=== PATIENT | male | born 1950 | race Caucasian/White ===

== ENCOUNTER 2025-01-17 07:14 | Day surgery (SDC) | payer MEDICARE, SELFPAY ==
--- NOTE | 2025-01-09 11:06 | EKG12_ITS ---
Test Reason : PRE OP Blood Pressure : */* mmHG Vent. Rate : 91 BPM Atrial Rate : 91 BPM P-R Int : 140 ms QRS Dur : 124 ms QT Int : 378 ms P-R-T Axes : 43 -54 38 degrees QTcB Int : 464 ms Normal sinus rhythm Right bundle branch block Left anterior fascicular block Bifascicular block Possible Lateral infarct , age undetermined Abnormal ECG Confirmed by Sd Duarte ([id number]), industrial editor NEERAJ BOLAÑOS ([id number]) on 01/10/2025 6:55:47 AM Referred By: Chris Espitia Confirmed By: Sd Duarte
[2025-01-09 12:41] LABS: Hematocrit 44.6 % (40-54); Hemoglobin 14.8 g/dL (13.0-16.5); Mean Corp Hgb Conc 33.2 g/dL (32-36); Mean Corpuscular Volume 93.3 fL (80-94); Mean Platelet Vol. 12.9 fl (6.2-12.0); Platelet Count 166 K/mm3 (150-450); RBC Distribution Width CV 13.2 % (11.6-14.6); RBC Distribution Width SD 45.7 fl (35.1-43.9); Red Blood Count 4.78 M/mm3 (4.6-6.2); White Blood Count 5.8 K/mm3 (4.4-11.0)
[2025-01-09 12:44] LABS: International Normalized Ratio 0.9; Prothrombin Time (Protime)PT. 12.4 SECONDS (11.7-14.9)
[2025-01-09 13:23] LABS: Partial Thromboplast Time 24.5 Seconds (24.1-36.2)
[2025-01-09 13:56] LABS: AST(SGOT) 24 U/L (15-37); Alanine Aminotransfer ALT/SGPT 37 U/L (16-61); Albumin, Serum 4.1 g/dL (3.2-5.0); Alkaline Phosphatase 76 U/L (45-117); Anion Gap 6 (5-15); BUN 9 mg/dL (7-18); BUN/Creat Ratio 9.2 RATIO (10-20); Bilirubin, Direct 0.21 mg/dL (0.00-0.30); Calcium,Total 9.4 mg/dL (8.5-10.1); Chloride 104 mmol/L (98-107); Creatinine, Serum 0.97 mg/dL (0.70-1.30); EST Glomerular Filtration Rate 80 mL/min (>60); Est Glom Filt Rate - Afr Amer 97 mL/min (>60); Globulin 3.5 g/dL (2.2-4.2); Glucose 97 mg/dL (74-106); Protein, Total 7.6 g/dL (6.4-8.2); Sodium Level 137 mmol/L (136-145)
--- NOTE | 2025-01-10 10:02 | PAT.ANESEVAL ---
Pre-Assessment Diagnosis/Proposed Procedure Planned Operative Procedure(s): TURBT MEDIUM WITH MITOMYCIN C Anesthesia History Anesthesia History - mat inspector: Anesthesia History - mat inspector Hx Hospitalization No 01/04/25 09:12 Any Problems With Anesthesia No 01/04/25 09:12 Cholinesterase deficiency No 01/04/25 09:12 You/Your Family Experience No 01/04/25 09:12 fever (hyperthermia) with Relationship Recent Exposure to Contagious Disease Does patient have nerve No 01/04/25 09:12 stimulator Patient instructed to have device shut off --Does patient have Pacemaker or ICD? When Was Last Pacemaker Check QUESTION #4 FULL TEXT: You/Your Family Experience fever (hyperthermia) with Anesthesia Last Oral Intake Last Oral intake: Last Oral Intake NPO since Meds taken in AM with sips of water? Meds patient instructed to take am of surgery PONV PONV - mat inspector: PONV - mat inspector Female No 01/04/25 09:12 HX of Motion Sickness No 01/04/25 09:12 HX of N/V After Surgery No 01/04/25 09:12 Non-Smoker Yes 01/04/25 09:12 Duration of Surgery greater Yes 01/04/25 09:12 than 60 minutes Number of Risk Factors 2 01/04/25 09:12 PONV Score Moderate Risk 01/04/25 09:12 Respiratory Assessment Respiratory Assessment - mat inspector: Respiratory Tract Infection Hx - mat inspector Hx Respiratory Tract Infection No 01/04/25 09:12 STOP Sleep Apnea STOP Sleep Apnea - mat inspector: STOP Sleep Apnea - mat inspector Hx Hypertension Yes: CONTROLLED WITH MEDS 01/04/25 09:12 Hx Sleep Apnea No 01/04/25 09:12 CPAP BIPAP Do you snore loudly (louder No 01/04/25 09:12 than talking or can be heard Do you often feel tired/ No 01/04/25 09:12 fatigued/ sleepy during daytime? Has anyone observed you stop No 01/04/25 09:12 breathing during sleep? STOP Results Negative 01/04/25 09:12 QUESTION #5 FULL TEXT : Do you snore loudly (louder than talking or can be heard through closed doors)? Tobacco Use History Tobacco Use History - mat inspector: Tobacco Use History - mat inspector Tobacco Use Smoking Status Former smoker 01/04/25 09:12 Hx Tobacco Use No 01/04/25 09:12 Years Smoking Packs Smoked per Day Smoking Cessation Date was No - quit smoking greater 01/04/25 09:12 within the last 15 years than 15 years ago Hx Smoking Cessation Date Hx Smoking Cessation No 01/04/25 09:12 Counseling Hematologic Medial History Hematologic Hx - mat inspector: Hematologic Medical Hx - outer diameter grinder Hx of Blood Transfusion No 01/04/25 09:12 Hx of Transfusion in last 3 No 01/04/25 09:12 Months Date of Last Transfusion (if within last 3 months) Ever experience any problems No 01/04/25 09:12 with transfusion(s)? Specify any problems Hx of Preganancy in last 3 N/A 01/04/25 09:12 Months Nurse Filling Out Transfusion DSCHRIBER 01/04/25 09:12 & Questions: Date: 01/04/25 01/04/25 09:12 Time: 09:15 01/04/25 09:12 Patient unable to answer at this time (ie. confused, unrespo /Reproduction History /Reproductive History - mat inspector: /Reproductive Hx- mat inspector Hx Now No 01/04/25 09:12 Gestational Age (in weeks): EDC: Hx Hx Para Hx Section SAB No 01/04/25 09:12 [facility] Medical History (Updated 01/04/25 @ 09:22 by Italia Torres) Loss of hearing Wears glasses Wears partial dentures Cancer Alcohol use Arthritis Prostate disease Bladder disease Loss of consciousness Injury of head and neck Former smoker Hypertension Home Medications ?Medication ?Instructions ?Recorded ?Last Taken ?Type amlodipine 5 mg tablet 5 mg PO QHS 01/04/25 Unknown History lisinopril 10 1 tab PO DAILY 01/04/25 Unknown History mg-hydrochlorothiazide 12.5 mg tablet quetiapine 200 mg tablet 200 mg PO QHS 01/04/25 Unknown History Allergy/AdvReac Type Severity Reaction Status Date / Time No Known Allergies Allergy Verified 01/04/25 09:08 Surgical History (Updated 01/04/25 @ 09:22 by Italia Torres) Hx of colonoscopy Hx of radical prostatectomy Hx of appendectomy Social History Smoking Status: Former smoker Audit: Pertinent Findings Pertinent Findings EKG Perinent findings: 01/09/2025 normal sinus rhythm right bundle branch block left anterior fascicular block bifascicular block possible lateral infarct age undetermined no old EKG to compare Recommendation Anesthesia Recommendation Anesthesia recommendation: OPTIMIZED for anesthesia
[2025-01-17] VITALS (10 sets, daily range): BP systolic 106–143; BP diastolic 56–88; PULSE 77–89; RESP 16–18; TEMP 36.4–36.8; O2SAT 95–98; BMI 32.3
[2025-01-17] MEDS: 0.9% Normal Saline (1000mL) 1,000 ML 15 ML IV (07:45)
--- NOTE | 2025-01-17 08:44 | PRE.ANES_ITS ---
ASA Classification* ASA Classification ASA Classification: 2 Assessment & Plan Anesthesia* Anesthesia Assessment Anesthesia Assessment: Discussed sedation and/or anesthesia options, risks, benefits, and alternatives with patient/parents/legal guardian/POA. Questions invited. The patient/parents/legal guardian/POA seems to understand and agrees to proceed with anesthesia plan. Reviewed the physical assessment, medical history, allergy history and patient home medications list prior to surgery/procedure/anesthetic and documented any changes. Performed airway and anesthesia risk assessments. Anesthesia Type Anesthesia Type: General History Source History Obtained from:: Patient and Chart Anesthesia Focused Assessment* Temperature: 98.2 F Pulse Rate: 88 Blood Pressure: 141/76 Respiratory Rate: 16 Pulse Ox: 98 Oxygen Delivery Method: Room Air Airway Assessment Mouth opens: >3 cm Mallampati Score: III Teeth Condition: Caps/Crowns (Some caps and crowns. They are all tight.), Missing (Some missing teeth.) and Partial (Patient has lower partial. It is out.) Neck Range of motion (ROM): Full ROM Focused Labs Anesthesia Preop lab: CBC WBC 5.8 K/mm3 (4.4-11.0) 01/09/25 11:01/09/25 RBC 4.78 M/mm3 (4.6-6.2) 01/09/25:01/09/25 Hgb 14.8 g/dL (13.0-16.5) 01/09/25 11:01/09/25 Hct 44.6 % (40-54) 01/09/25 11:01/09/25 Plt Count 166 K/mm3 (150-450) 01/09/25 11:01/09/25 CHEMISTRY Potassium 4.0 mmol/L (3.5-5.1) 01/09/25:01/09/25 Sodium 137 mmol/L (136-145) 01/09/25:01/09/25 BUN 9 mg/dL (7-18) 01/09/25:01/09/25 Creatinine 0.97 mg/dL (0.70-1.30) 01/09/25 11:01/09/25 Glucose 97 mg/dL (74-106) 01/09/25 11:01/09/25 COAG PT 12.4 SECONDS (11.7-14.9) 01/09/25 11:28 Pre-Assessment Diagnosis/Proposed Procedure Planned Operative Procedure(s): TURBT MEDIUM WITH MITOMYCIN C Anesthesia History Anesthesia History - contractor general engineering: Anesthesia History - contractor general engineering Hx Hospitalization No 01/04/25 09:12 Any Problems With Anesthesia No 01/04/25 09:12 Cholinesterase deficiency No 01/04/25 09:12 You/Your Family Experience No 01/04/25 09:12 fever (hyperthermia) with Relationship Recent Exposure to Contagious No 01/17/25 07:53 Disease Does patient have nerve No 01/04/25 09:12 stimulator Patient instructed to have device shut off --Does patient have Pacemaker No 01/17/25 07:53 or ICD? When Was Last Pacemaker Check QUESTION #4 FULL TEXT: You/Your Family Experience fever (hyperthermia) with Anesthesia Last Oral Intake Last Oral intake: Last Oral Intake NPO since 06:00 01/17/25 07:53 Meds taken in AM with sips of No 01/17/25 07:53 water? Meds patient instructed to take am of surgery Any additional information?: Yes NPO since: 05:45 (Patient had black coffee at 5:45 AM) PONV PONV - contractor general engineering: PONV - contractor general engineering Female No 01/04/25 09:12 HX of Motion Sickness No 01/04/25 09:12 HX of N/V After Surgery No 01/04/25 09:12 Non-Smoker Yes 01/04/25 09:12 Duration of Surgery greater Yes 01/04/25 09:12 than 60 minutes Number of Risk Factors 2 01/04/25 09:12 PONV Score Moderate Risk 01/04/25 09:12 Height & Weight Height & Weight: Anesthesia: Height & Weight Height 6 ft 01/17/25 07:53 Weight: 108 kg 01/17/25 07:53 Body Mass Index (BMI) 32.3 01/17/25 07:53 Respiratory Assessment Respiratory Assessment - contractor general engineering: Respiratory Tract Infection Hx - contractor general engineering Hx Respiratory Tract Infection No 01/04/25 09:12 STOP Sleep Apnea STOP Sleep Apnea - contractor general engineering: STOP Sleep Apnea - contractor general engineering Hx Hypertension Yes: CONTROLLED WITH MEDS 01/04/25 09:12 Hx Sleep Apnea No 01/04/25 09:12 CPAP BIPAP Do you snore loudly (louder No 01/04/25 09:12 than talking or can be heard Do you often feel tired/ No 01/04/25 09:12 fatigued/ sleepy during daytime? Has anyone observed you stop No 01/04/25 09:12 breathing during sleep? STOP Results Negative 01/04/25 09:12 QUESTION #5 FULL TEXT : Do you snore loudly (louder than talking or can be heard through closed doors)? Tobacco Use History Tobacco Use History - contractor general engineering: Tobacco Use History - contractor general engineering Tobacco Use Smoking Status Former smoker 01/04/25 09:12 Hx Tobacco Use No 01/04/25 09:12 Years Smoking Packs Smoked per Day Smoking Cessation Date was No - quit smoking greater 01/04/25 09:12 within the last 15 years than 15 years ago Hx Smoking Cessation Date Hx Smoking Cessation No 01/04/25 09:12 Counseling Hematologic Medial History Hematologic Hx - contractor general engineering: Hematologic Medical Hx - head rose grower Hx of Blood Transfusion No 01/04/25 09:12 Hx of Transfusion in last 3 No 01/04/25 09:12 Months Date of Last Transfusion (if within last 3 months) Ever experience any problems No 01/04/25 09:12 with transfusion(s)? Specify any problems Hx of Preganancy in last 3 N/A 01/04/25 09:12 Months Nurse Filling Out Transfusion DSCHRIBER 01/04/25 09:12 & Questions: Date: 01/04/25 01/04/25 09:12 Time: 09:15 01/04/25 09:12 Patient unable to answer at this time (ie. confused, unrespo /Reproduction History /Reproductive History - contractor general engineering: /Reproductive Hx- contractor general engineering Hx Now No 01/04/25 09:12 Gestational Age (in weeks): EDC: Hx Hx Para Hx Section SAB No 01/04/25 09:12 Active Medications Active Medications: Current Medications Generic Name Dose Route Start Last Admin Trade Name Freq PRN Reason Stop Dose Admin Cefazolin Sodium 2 gm/ N/A 20 mls @ 400 mls/hr 01/17/25 10:20 IV 01/17/25 10:22 PREOP ONE Mitomycin 40 mg/ N/A 40 mls @ 2,400 mls/hr 01/17/25 10:20 INSTILLAT 01/17/25 10:21 X1 ONE Sodium Chloride 1,000 mls @ 15 mls/hr 01/17/25 07:35 01/17/25 07:45 IV 01/22/25 20:54 15 mls/hr .Q48H ESTRADA Administration Protocol [facility] Medical History Loss of hearing Wears glasses Wears partial dentures Cancer Alcohol use Arthritis Prostate disease Bladder disease Loss of consciousness Injury of head and neck Former smoker Hypertension Home Medications ?Medication ?Instructions ?Recorded ?Last Taken ?Type amlodipine 5 mg tablet 5 mg PO QHS 01/04/25 Unknown History lisinopril 10 1 tab PO DAILY 01/04/25 Unkn own History mg-hydrochlorothiazide 12.5 mg tablet quetiapine 200 mg tablet 200 mg PO QHS 01/04/25 Unkno wn History Allergy/AdvReac Type Severity Reaction Status Date / Time No Known Allergies Allergy Verified 01/17/25 07:52 Surgical History Hx of colonoscopy Hx of radical prostatectomy Hx of appendectomy Social History Smoking Status: Former smoker Review of Systems (Anesthesia) ROS Narrative System reviewed and no additional complaints, except as documented.
--- NOTE | 2025-01-17 09:50 | BLB_PTH ---
PATIENT: BRENNON PALACIO LOC: [facility] [place][id number] AGE/SX: 74/M ROOM: RE01/17/[address]: Dr. Chris Espitia MD : 1950 BED: DIS: 01/17/2025 SPEC #: [id number] RECD: 01/17/25 11:03 STATUS: TANYA MALAVEAditya #: [id number] DORA: 01/17/25 09:[address]: Chris Espitia DEPT: SURGICAL PATHOLOGY RECD BY: Shanna Escalante ENTERED: 01/17/25 12:10 SP TYPE: TURB OTHR DR: Dr. 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 See comment. SJ.mr 01/18/2025 COMMENT A fragment of fibroconnective tissue is also noted. Detrusor muscle is not identified. 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 Clinical correlation and appropriate follow up are necessary. MICROSCOPIC DESCRIPTION Slides are reviewed. GROSS DESCRIPTION Received in fixative is one container labeled with the patient's name and designated Bladder tumor. The specimen consists of two irregular fragments of quarles soft tissue that in aggregate measure 1 x 0.4 x 0.1 cm. The specimen is totally submitted in one cassette. 01/17/2025 TC:5 CPT:89667
--- NOTE | 2025-01-17 10:07 | HP.PCM_ITS ---
HPI - General General Date of Service: 01/17/25 Chief Complaint: Bladder tumor HPI Narrative BRENNON PALACIO, is a 74 M who presents resection of a bladder tumor [facility] Medical History Loss of hearing Wears glasses Wears partial dentures Cancer Alcohol use Arthritis Prostate disease Bladder disease Loss of consciousness Injury of head and neck Former smoker Hypertension Home Medications ?Medication ?Instructions ?Recorded ?Last Taken ?Type amlodipine 5 mg tablet 5 mg PO QHS 01/04/25 Unknown History lisinopril 10 1 tab PO DAILY 01/04/25 Unkn own History mg-hydrochlorothiazide 12.5 mg tablet quetiapine 200 mg tablet 200 mg PO QHS 01/04/25 Unkno wn History Allergy/AdvReac Type Severity Reaction Status Date / Time No Known Allergies Allergy Verified 01/17/25 07:52 Surgical History Hx of colonoscopy Hx of radical prostatectomy Hx of appendectomy Social History Smoking Status: Former smoker Vital Signs Vital Signs Vital Signs: 01/17/25 07:53 01/17/25 07:53 01/17/25 08:54 Temperature 98.2 F 98.2 F Temperature Source Temporal Pulse Rate 88 88 Respiratory Rate 16 16 Respiratory Pattern Normal Blood Pressure 141/76 H 141/76 H Blood Pressure Mean 97 Blood Pressure Source Monitor Blood Pressure Position Sitting Blood Pressure Location Left Arm Pulse Ox 98 98 Oxygen Delivery Method Room Air Room Air Weight Weight: 108 kg Body Mass Index (BMI) 32.3 Results Lab / Micro Data 01/09/25 11:28 01/09/25 11:28
--- NOTE | 2025-01-17 10:08 | PCM.DC ---
Discharge Instructions Diet Discharge Diet: No restrictions DC O2, CPAP, BIPAP needs Home O2 Discharge instructions: No Dressing / Incision Discharge Activity: Return to Normal Activity and May Not Drive (while taking narcotic pain medications.) Dressing / Incision Call your doctor if you observe: Fever of 101 or Higher Follow Up Care Please Follow Up With: Chris Espitia MD When: Call [phone] for an appointment Test Results: Test results from this visit will be discussed in further detail at your follow-up appointment, if applicable. Discharge Plan Admission Primary Reason for Your Visit: turbt Attending Provider: Chris Espitia Primary Care Provider: Wilson Beth Instructions Print Language: Bulgarian Discharge Orders/Prescriptions Prescriptions: Continued lisinopril-hydrochlorothiazide 10-12.5 mg tablet 1 tab PO DAILY amlodipine 5 mg tablet 5 mg PO QHS quetiapine 200 mg tablet 200 mg PO QHS Disposition Disposition (needs filled in before D/C Order can be placed): Home, Self Care
[2025-01-17] MEDS: Cefazolin 2 GM in Syringe IV (10:12)
[2025-01-17] MEDS: MitoMYcin 40 MG in Syringe 1 EACH 2400 MG INSTILLAT (10:22)
--- NOTE | 2025-01-17 10:23 | PCM.OPRPT ---
Operative Report (Standard) Operative Information Date of Procedure: 01/17/25 Pre-Operative Diagnosis: Bladder tumor, 2.5 cm in size Post-Operative Diagnosis: The same Surgery/Procedure Performed: Transurethral section of bladder tumor and instillation of Mitomycin-C learning disabilities resource teacher: No Type of Anesthesia: General RN Documented Start/Stop Times: Operation Date: 01/17/25 09:50 Case Time Into Pre-Op 01/17/25 07:53 Out of Pre-Op 01/17/25 09:58 Anesthesia Start 01/17/25 10:00 Into Room 01/17/25 10:00 Procedure Start 01/17/25 10:15 Procedure Start Time: 10:00 Procedure Stop Time: 10:24 Select all DRAINS/GRAFTS/IMPLANTS that apply: None Estimated Blood Loss: 0 Specimen collected: No Description of surgery: Patient presented to the hospital for treatment of a tumor that was found in the bladder with a very large bladder tumor. Patient understands is possible it may not be able to resect the entire tumor. Patient also understands is possible that the patient may need multiple procedures or more invasive procedures to cure him of this cancer. Patient was taken back to the operating room after smooth induction of anesthesia the patient was placed supine on the table. The patient was placed in dorsolithotomy position. The urethra and genitals prepped and draped in usual sterile fashion. I went into the bladder with a 30 degree lens and a cystoscope was performed and identified the tumor the tumors which was about 2.5 centimeters in size and occupying mostly the left trigone of the bladder. I then switched over to the 70 degree lens and inspected the rest of the bladder with a 70 degree lens to make sure there is no other tumors in the bladder and to identify all the tumor locations. The right and left ureteral orifice were identified. The tumor was involved in the left ureteral orifice. I then placed the Olympus bipolar resectoscope with a large loop into the bladder. I then started resected the tumor and started superficially shaving small little pieces working my way to the base of the tumor. As I went along I then cauterize any bleeders that were encountered during the resection. The tumor pieces were then flushed out of the bladder and continued resecting the tumor until finally I got down to the base of the tumor and the muscle of the bladder was then identified a small little bit of muscle was taken with the resection. The Ellik was used then to evacuate all the tumor pieces out of the bladder. I then cauterized extensively the tumor base and also circumferentially around where the tumor was. Again we made sure to evacuate all the pieces out the bladder. I made sure there was no more bleeding from the base of the bladder and then over the tumor pieces were then evacuated out and sent off as a specimen. After the resection of the entire tumor was completed then treatment with Mitomycin-C was performed. We then placed the catheter in the bladder and the patient was taken back to the PACU in stable condition. Surgical Findings: Tumor involving the left trigone was resected completely Complications Complications: No Admit VTE Documentation VTE Present on Admission: No VTE Mechan Device Prophylaxis: SCD's VTE Pharm Prophylaxis ordered?: No
--- NOTE | 2025-01-17 11:26 | PCM.POST.ANE ---
Anesthesia: Postop Eval I Current Vital Signs Temperature: 97.5 F Pulse Rate: 77 Blood Pressure: 131/77 Respiratory Rate: 16 Pulse Ox: 98 Oxygen Delivery Method: Room Air Fraction of Inspired Oxygen (FIO2): 0.21 Assessment Airway patent: Yes Spontaneous unlabored respirations: Yes Mental status: Awake and Calm nausea: No Vomiting: No Anesthesia Complication: No Fluid Hydration Crystalloid volume administer (ml): 500 Total IV fluid infused: 500 Progress Note Post-operative progress note: No additional data Anesthesia document: Postop Eval 1 completed: Yes
--- NOTE | 2025-01-17 13:33 | POSTOPAN2_ITS ---
Anesthesia Postop Eval I Sum Postop Eval Completion status Anesthesia document: Postop Eval 1 completed: Yes Anesthesia Postop Eval I Summary Anesthesia Postop Eval I Summary: Anesthesia Postop Eval I: Assessment Summary Airway patent Yes 01/17/25 11:30 CAREER ORIENTATION [email or web address] Spontaneous unlabored Yes 01/17/25 11:30 CAREER ORIENTATION TEACHER.NFOR respirations Mental status Awake,Calm 01/17/25 11:30 CAREER ORIENTATION TEACHER.NFOR nausea No 01/17/25 11:30 CAREER ORIENTATION TEACHER.NFOR Vomiting No 01/17/25 11:30 CAREER ORIENTATION [email or web address].[email or web address] Anesthesia Postop Eval I: Fluid Summary Crystalloid volume administer 500 01/17/25 11:30 CAREER ORIENTATION TEACHER.NFOR (ml) Colloids volume administered ( ml) Blood Product volume administered (ml) Total IV fluid infused 500 01/17/25 11:30 CAREER ORIENTATION [email or web address].[email or web address] Anesthesia Postop Eval I: Summary Notes Anesthesia Complication No 01/17/25 11:30 CAREER ORIENTATION [email or web address].[email or web address] Anesthesia Complication Comment: Post-operative progress note No additional data 01/17/25 11:30 CAREER ORIENTATION [email or web address] Anesthesia: Postop Eval II Evaluation Mental status: Awake Pain Level: 2 nausea: No Vomiting: No
--- NOTE | 2025-01-17 13:33 | PCM.POSTANE2 ---
Anesthesia Postop Eval I Sum Postop Eval Completion status Anesthesia document: Postop Eval 1 completed: Yes Anesthesia Postop Eval I Summary Anesthesia Postop Eval I Summary: Anesthesia Postop Eval I: Assessment Summary Airway patent Yes 01/17/25 11:30 CAR INSTALLATIONS [email or web address] Spontaneous unlabored Yes 01/17/25 11:30 CAR INSTALLATIONS SUPERVISOR.NFOR respirations Mental status Awake,Calm 01/17/25 11:30 CAR INSTALLATIONS SUPERVISOR.NFOR nausea No 01/17/25 11:30 CAR INSTALLATIONS SUPERVISOR.NFOR Vomiting No 01/17/25 11:30 CAR INSTALLATIONS SUPERVISOR.NFOR Anesthesia Postop Eval I: Fluid Summary Crystalloid volume administer 500 01/17/25 11:30 CAR INSTALLATIONS SUPERVISOR.NFOR (ml) Colloids volume administered ( ml) Blood Product volume administered (ml) Total IV fluid infused 500 01/17/25 11:30 CAR INSTALLATIONS SUPERVISOR.NFOR Anesthesia Postop Eval I: Summary Notes Anesthesia Complication No 01/17/25 11:30 CAR INSTALLATIONS SUPERVISOR.NFOR Anesthesia Complication Comment: Post-operative progress note No additional data 01/17/25 11:30 CAR INSTALLATIONS SUPERVISOR.NFOR Anesthesia: Postop Eval II Evaluation Mental status: Awake Pain Level: 2 nausea: No Vomiting: No
== END 2025-01-17 11:59 | disposition home or self-care (01) ==
LOC: SDC 07:15 → AC 07:15
PROVIDERS: Anesthesiology; PCP Family Medicine; Referring Provider Urology; Visit Provider Urology
PROC: 0T5B8ZZ Destruction of Bladder, Via Natural or Artificial Opening Endoscopic (ICD-10-PCS; CPT 51720; principal; 2025-01-17 09:40)
DX: D49.4 Neoplasm of unspecified behavior of bladder (principal); I10 Essential (primary) hypertension; Z87.891 Personal history of nicotine dependence; Z79.899 Other long term (current) drug therapy
CPT/HCPCS: 52235; 51720; 00912; 36415; 80048; 80076; 85027; 85610; 85730; 88307; 93005; J9280; J2405

== ENCOUNTER → 2025-03-20 | Outpatient (CLI) | payer MEDICARE, SELFPAY ==
[2025-03-20 13:36] LABS: PSA,Total- Diagnostic < 0.02 ng/mL (0.00-4.00)
== END | disposition home or self-care (01) ==
LOC: LAB 11:37
PROVIDERS: PCP Family Medicine; Referring Provider Urology; Visit Provider Urology
DX: C61 Malignant neoplasm of prostate (principal)
CPT/HCPCS: 36415; 84153